=== PATIENT | male | born 2005 | race Caucasian/White ===

== ENCOUNTER 2023-09-21 08:07 | Emergency (ER) | payer BC ==
[2023-09-21] MEDS ORDERED: Ondansetron PF 4 MG/2 ML Vial ONE (08:35)
[2023-09-21 08:42] LABS: Hemoglobin 19.2 g/dL (14.0-18.0); Mean Corpuscular HGB CONC 31.4 g/dL (32.0-36.0); Mean Corpuscular Hemoglobin 27.8 pg (25.0-35.0); Mean Corpuscular Volume 88.5 fl (78.0-98.0); Mean Platelet Volume 6.5 fL (7.4-10.4); Platelet Count 497 10x3/uL (130-400); RBC Distribution Width 11.6 % (11.5-14.5); Red Blood Cell (RBC) Count 6.89 mill/uL (4.00-5.20)
[2023-09-21] MEDS ORDERED: Ibuprofen 600 MG TAB ONE (08:43)
[2023-09-21 08:51] LABS: ALT (SGPT) 33 U/L (8-55); AST (SGOT) 30 U/L (5-34); Alkaline Phosphatase 89 U/L (50-130); Anion Gap 35 mmol/L (10-20); BUN (Urea Nitrogen) 35 mg/dL (8.9-20.6); Bilirubin, Total 1.3 mg/dL (0.2-1.2); CK (CPK) 1721 U/L (30-200); Calc. Creatinine Clearance 0 mL/min (70-130); Calcium 11.7 mg/dL (7.8-10.44); Carbon Dioxide 20 mmol/L (22-29); Chloride 88 mmol/L (98-107); Estimated GFR 15; Glucose 138 mg/dL (70-105); Potassium 4.1 mmol/L (3.5-5.1); Protein, Total 10.6 g/dL (6.0-8.3); Sodium 139 mmol/L (136-145)
[2023-09-21] MEDS ORDERED: Sodium Chloride 0.9% 100 ML ONE (08:57)
[2023-09-21] MEDS ORDERED: cefTRIAXone (ROCEPHIN) 1 GM VIAL ONE (08:57)
[2023-09-21 09:12] LABS: Lymphocytes 9 % (28-48); MDiff Complete? YES; Monocytes 4 % (0-4); Neutrophil 87 % (31-61); Platelet Adequacy Comment Appears Increased
[2023-09-21 09:13] LABS: Critical Call Chem-Lactate NUR.AW2
[2023-09-21 09:39] LABS: Albumin 6.8 g/dL (3.5-5.0)
[2023-09-21] MEDS ORDERED: Lactated Ringer's 1,000 ML ONE (09:39)
== END 2023-09-21 10:06 | disposition short-term general hospital (02) ==
LOC: MADERS 08:07
DX: E86.0 Dehydration (principal); M62.82 Rhabdomyolysis; N17.9 Acute kidney failure, unspecified; F17.290 Nicotine dependence, other tobacco product, uncomplicated
CPT/HCPCS: 71045; 80053; 82550; 83605; 85025; 87040; 93005; 96361; 96365; 96375; J0696; J2405; J3490; J7120